=== PATIENT | female | born 1960 | race Caucasian/White ===

== ENCOUNTER 2023-05-29 06:29 | Day surgery (SDC) | payer OTHER ==
[~2023-05-29] VITALS: Ht 144.8 cm; Wt 71.2 kg
[2023-05-29] MEDS ORDERED: MIDAZOLAM 5 MG/5 ML VIAL ONE (09:36)
[2023-05-29] MEDS ORDERED: fentaNYL citrate 0.05 MG/ML VIAL ONE (09:36)
[2023-05-29] MEDS ORDERED: LIDOCAINE 2% 100 MG/5 ML UJET TP ONE (09:36)
[2023-05-29] MEDS: fentaNYL citrate 0.05 MG/ML VIAL IVP ONE (09:42)
== END 2023-05-29 10:50 | disposition home or self-care (01) ==
LOC: MOR 06:29 → MMU 06:30 → MOR 10:50
PROVIDERS: ATTEND Internal Medicine Gastroenterology
DX: Z12.11 Encounter for screening for malignant neoplasm of colon (principal); K63.5 Polyp of colon; I10 Essential (primary) hypertension; E11.9 Type 2 diabetes mellitus without complications; E78.00 Pure hypercholesterolemia, unspecified; M81.0 Age-related osteoporosis without current pathological fracture; Z98.891 History of uterine scar from previous surgery; Z79.899 Other long term (current) drug therapy; Z98.890 Other specified postprocedural states
CPT/HCPCS: 45385; 82948; J3010; J2250